=== PATIENT | male | born 1995 ===

== ENCOUNTER 2024-06-09 13:57 | Emergency (ER) | payer MEDICAID, SELFPAY ==
--- NOTE | 2024-06-09 14:12 | ED.GENADULT ---
HPI - General Adult General Chief complaint: Psychiatric Symptoms Stated complaint: FALL BODY PAINS Time Seen by Provider: 06/09/24 14:12 History of Present Illness ED Provider: Everton CARRILLO narrative: The patient is a 28-year-old male. He says that he has a history of a head injury. He says he also has a history of depression. He says that he has a primary care doctor and a neurologist. His doctors are in the [facility] but he has is also sometimes living in the [facility]. He also has problems with substance use. He also has problems with housing. The patient says that he has been living in a [facility] facility for housing for several months but about a month ago lost his housing because he had missed his curfew. He was then functionally homeless. His substance use problems worsened after he became homeless. He says that he was able to get himself into [facility] in [place] for detox for 2 weeks. He says that he was discharged from the detox facility on June 01, 8 days ago. After that he was again essentially homeless. He made it back to the [facility] but was not doing very well and so he went to [facility]'s Emergency room a couple of days ago. He was medically cleared and seen by the behavioral health team in the emergency room. Arrangements were made for him to be admitted to the [facility] and he was transferred there a little while ago by ambulance. Apparently after the medics left and he was involved in the preliminary intake process at [facility] he read through the requirements of the hospitalization. He realized that what was being proposed to him was nothing that he had anticipated. He says that he had not been told anything at [facility] about the plan for a psychiatric hospitalization. He says that he panicked and ran through an open door and was able to get out of the facility. 911 was called and he was found fairly soon by police and paramedics and he was brought to the hospital here. When I spoke to him he denies having taken any drugs in the brief time that he was at large. He also says that he did not sustain any injuries or try to harm himself in any way. The patient admits to a history of depression but currently he denies any plans to harm himself or anyone else. Related Data Allergies Allergy/AdvReac Type Severity Reaction Status Date / Time No Known Allergies Allergy Verified 06/09/24 14:22 Review of Systems Review of Systems: Yes all other systems are reviewed and are negative [facility] Social History Social History Smoked in Last 30 Days: Yes Use of substances other than those prescribed or required for medical reasons: No Advance Directives: No Advance Directives Information Provided: Yes Physical Exam ED Vital Signs: Vital Signs - 24 hr 06/09/24 14:19 06/09/24 14:29 Temperature 97.4 F 97.4 F Pulse Rate 91 91 Respiratory Rate 20 20 Blood Pressure 132/85 132/85 Pulse Oximetry 97 97 Oxygen Delivery Method Room Air Room Air BMI result Body Mass Index 28.9 Const Other: The patient is a well-developed 28-year-old male who was awake and alert. He was calm and cooperative. He did not seem in acute distress. He was not exhibiting any thought disorder. HENMT Other: Face is symmetrical. Mucous membranes moist. Eyes Other: Pupils are round equal, conjunctivae are clear, extraocular movements intact. Neck Neck: Yes full ROM Resp Effort & Inspection: normal respiratory effort Auscultation: clear to auscultation bilaterally Cardio Rate: regular rate Rhythm: regular rhythm Heart sounds: S1 normal heart sound present and S2 normal heart sound present GI Other: Abdomen is soft and nontender Skin General skin exam: no rashes or lesions noted Neuro Other: The patient is awake and alert with a normal mental status. He is appropriately oriented. Cranial nerves 2-12 are intact. He moves his extremities normally and appropriately. He seems neurologically intact. Extrem Other: No deformity to the extremities Psych Other: The patient is awake and alert. He was holding a blanket over his head during the interview. He was calm and cooperative. He did not exhibit any thought disorder. He denies suicidality and homicidality Medical Decision Making Medical Decision Making MDM Narrative: The patient is a 28-year-old male with a history of depression who comes to the hospital under unusual circumstances. He has been transferred for inpatient psychiatric hospitalization at the [facility] from [facility] Emergency room to [facility]. Before he had formally completed the intake process at [facility] he eloped from [facility]. Police any bark press operator were called and he was located very soon after leaving [facility] and was brought here on a section 12 filled up by the police officers. On my exam I do not appreciate any thought disorder or any suicidality or homicidality. Based on what the patient is telling me and based on my impression of the patient's presentation I do not feel there are grounds for involuntary hospitalization. The patient seems medically clear. The patient seems to be prescribed Suboxone regularly. He also has received Sublocade. I consulted our care team. The care team social media coordinator agrees that the patient does not seem to meet criteria for involuntary hospitalization but at this point the patient is willing to be hospitalized and a dual diagnosis basis (depression and substance use disorder). Therefore we will continue with blood testing here at this hospital and keep the patient in the emergency room for disposition by our care team. Clinically the patient seems medically clear. Lab tests are pending. The patient will be placed in physician observation pending disposition recommendations by the care team. Lab Data Labs: Lab Results 06/09/24 Range/Units 14:54 Urine Color Dark Yellow Urine Appearance Clear Urine pH 6.0 (5.0-9.0) Ur Specific [place] 1.025 (1.005-1.025) Urine Protein 30 (1+) H (Neg-Trace) mg/dL Urine Glucose (UA) Negative (Negative) mg/dL Urine Ketones 15 (Negative) mg/dL Urine Blood Negative (Negative) Urine Nitrite Negative (Negative) Ur Leukocyte Esterase Negative (Negative) Urine RBC 0-2 (0-2) /HPF Urine WBC 0-5 (0-5) /HPF Ur Squamous Epith Cells 3-5 (0-2) /HPF Urine Bacteria Trace (None Seen) Hyaline Casts 0-2 (0-2) /LPF Urine Opiates Screen Not Detected (Not Detect) Ur Buprenorphine Scrn Positive H (Not Detect) ng/mL Ur Oxycodone Screen Not Detected (Not Detect) ng/mL Urine Methadone Screen Not Detected (Not Detect) ng/mL Urine Fentanyl Screen Not Detected (Not Detect) Ur Barbiturates Screen Not Detected (Not Detect) Ur Phencyclidine Scrn Not Detected (Not Detect) Ur Amphetamines Screen Not Detected (Not Detect) U Benzodiazepines Scrn POSITIVE H (Not Detect) Urine Cocaine Screen POSITIVE H (Not Detect) U Marijuana (THC) Screen Not Detected (Not Detect) Discharge Plan Discharge Clinical Impression: Depression, Substance use disorder Patient Disposition: Still a Patient Interventions: [place]-Suicide Risk Severity Scale Last Done: 06/09/24 14:26 Print Language: French
[2024-06-09 14:19] VITALS: BP 130/80; BP 132/85; PULSE 91; PULSE 92; RESP 20; TEMP 36.3; O2SAT 97; BMI 28.9
[2024-06-09 14:29] VITALS: BP 132/85; PULSE 91; RESP 20; TEMP 36.3; O2SAT 97
--- NOTE | 2024-06-09 14:47 | MHC.CARE ---
T/w adiel Sanchez [phone] confirmed Pt will have bed upon medical clearance.
[2024-06-09 15:01] LABS: Appearance Urine Clear; Color Urine Dark Yellow; Glucose Urine UA Negative (Negative); Leukocyte Esterase Urine Negative (Negative); Nitrite Urine Negative (Negative); Specific Gravity - Urine 1.025 (1.005-1.025); UMIC TRIGGER UACC YES; Urine Blood Negative (Negative); Urine Ketones 15 mg/dL (Negative); Urine Protein 30 (1+) mg/dL (Neg-Trace)
[2024-06-09 15:24] LABS: Bacteria Urine Trace (None Seen); Hyaline Casts Urine 0-2 /LPF (0-2); RBC Urine 0-2 /HPF (0-2); WBC Urine 0-5 /HPF (0-5)
--- NOTE | 2024-06-09 15:31 | MHC.CARE ---
Per [place] with [facility] Medical crisis [phone] Patient self presented to the ED today, reporting SI with plan to OD on various substances. Precipitant was reported to be increased depression, upset he relapsed on cocaine and benzos. He made statements about feeling that he was followed. 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 [facility] clinician unable to find specifics as to what he OD'd on. Records indicate that he has therapist / psychiatrist with [facility] Hx of substance abuse tx. + cocaine and benzo. Per [place] with [facility], no crisis assessments on record. Noted for etoh use.
[2024-06-09 16:56] LABS: Amphetamine Screen Urine Not Detected (Not Detect); Barbiturates, Urine Not Detected (Not Detect); Benzodiazepines Screen Urine POSITIVE (Not Detect); Buprenorphine Scr Positive (Not Detect); Cannabinoid Screen Urine Not Detected (Not Detect); Cocaine Screen Urine POSITIVE (Not Detect); Fentanyl, urine Not Detected (Not Detect); Methadone Screen, Urine Not Detected (Not Detect); Opiate Screen Urine Not Detected (Not Detect); Oxycodone Screen Urine Not Detected (Not Detect); Phencyclidine Screen Urine Not Detected (Not Detect)
[2024-06-09 17:20] LABS: MANUAL DIFF FLAG NO
[2024-06-09 17:32] LABS: Basophils Percent Auto 0.7 % (0-2); Eosinophils Absolute Auto 0.3 X10*3/uL (0.0-0.4); Eosinophils Percent Auto 4.7 % (0-4); Hematocrit 37.8 % (42.0-52.0); Hemoglobin 12.9 g/dl (14.0-18.0); Imm Gran Abs Auto 0.02 X10*3/uL (0.00-0.03); Imm Gran Pct Auto 0.4 % (0.0-0.4); Lymphocytes Absolute Auto 1.7 X10*3/uL (1.2-4.9); Lymphocytes Percent Auto 32.1 % (20-40); Mean Corpuscular HGB Conc 34.1 g/dl (31.0-36.0); Mean Corpuscular Hemoglobin 27.3 pg (27.0-33.0); Mean Corpuscular Volume 80.1 fL (80.0-98.0); Mean Platelet Volume 9.2 fL (9.4-12.4); Monocytes Absolute Auto 0.6 X10*3/uL (0.1-1.2); Neutrophils Absolute Auto 2.7 x10*3/uL (2.0-8.3); Neutrophils Percent Auto 50.1 % (45-73); Platelet Count 329 X10*3/uL (160-400); Red Blood Count 4.72 X10*6/uL (4.60-5.80); White Blood Count 5.4 X10*3/uL (4.8-10.8)
[2024-06-09 17:40] LABS: Alanine Aminotransferase 45 U/L (0-40); Albumin Level 3.9 g/dL (3.5-5.0); Alkaline Phosphatase 62 U/L (39-117); Anion Gap 8 (12-20); Aspartate Amino Transferase 66 U/L (5-37); Bilirubin Total 0.6 mg/dL (0.0-1.0); Blood Urea Nitrogen 6 mg/dL (9-16); Calcium 9.1 mg/dL (8.4-10.2); Carbon Dioxide 28 mmol/L (22-29); Chloride 108 mmol/L (96-108); Creatinine Clr Calc Pharmacy 167.7; Estimated Glomerular Filt Rate > 60; Ethanol < 10 mg/dL; Glucose Random 90 mg/dL (60-115); Potassium 3.4 mmol/L (3.3-5.1); Sodium 141 mmol/L (135-145); Total Protein 7.2 g/dL (6.5-8.0)
--- NOTE | 2024-06-09 18:10 | PC.NURSE ---
Patient appears to be in no apparent distress, ate dinner and laid back down to go to sleep. Patient aware of plan of care for dual dx. bedsearch.
[2024-06-09 21:59] VITALS: BP 117/67; PULSE 99; RESP 16; TEMP 37.4; O2SAT 95
[2024-06-10 06:00] VITALS: BP 104/60; PULSE 66; RESP 17; TEMP 36.2; O2SAT 97
[2024-06-10] MEDS: Buprenorphine/Naloxone 8/2 mg FILM 1 FILM SUBLINGUAL (08:57)
--- NOTE | 2024-06-10 09:35 | MHC.CARE ---
Per [place] with [facility] Admissions, [phone]/ [phone] patient accepted to [facility] for dual dx INPT Address is [address] [place] [id number] for 1pm Accepting MD is Dr Grant NPI# [id number] Room TBD upon arrival
--- NOTE | 2024-06-10 10:18 | MHC.CARE ---
Attempted to reach both intake ?[phone] and warehouse foreman at [facility], . LVM with intake /no PHI disclosed requesting call back regarding a patient's belongings. Attempted alterations supervisor number, phone rang, outgoing message indicated no current voice mail sx set up.
[2024-06-10 11:46] VITALS: BP 104/60; PULSE 68; RESP 18; TEMP 36.3; O2SAT 97
== END 2024-06-10 11:49 ==
PROVIDERS: Emergency Provider Emergency Medicine
DX: F32.A Depression, unspecified (principal); F19.10 Other psychoactive substance abuse, uncomplicated
CPT/HCPCS: 36415; 80053; 80307; 81001; 81003; 85025; 99285; S9485